=== PATIENT | female | born 1960 | race Caucasian/White ===

== ENCOUNTER 2016-07-12 13:11 | Emergency (ER) | payer MEDICAID ==
[2016-07-12 13:21] VITALS: BP 122/73
--- NOTE | 2016-07-12 13:22 | ER Document Report ---
ED Medical Screen (RME) - General Stated Complaint: FALL SIDE PAIN Notes: patient is a 55 year old female who feel in a hole 4 ft deep last night c/o right side rib pain. Denies SOB, dyspnea. I have greeted and performed a rapid initial assessment of this patient. A comprehensive ED assessment and evaluation of the patient, analysis of test results and completion of the medical decision making process will be conducted by additional ED providers. TRAVEL OUTSIDE OF THE [place] IN LAST 30 DAYS: No - Related Data Allergies/Adverse Reactions: codeine [Codeine] Allergy (Severe, Verified 05/27/14 14:02) hives, itch, SOB Iodinated Contrast Media - Oral and Allergy (Severe, Verified 05/27/14 14:04) Hives morphine [Morphine] Adverse Reaction (Intermediate, Verified 05/20/14 06:49) N&V Past Medical History - Past Medical History Cardiac Medical History: Reports: Hx Hypercholesterolemia - meds x 3 years, Hx Hypertension - meds x 15 years Denies: Hx Atrial Fibrillation, Hx Congestive Heart Failure, Hx Coronary Artery Disease, Hx Heart Attack, Hx Peripheral Vascular Disease, Hx Pulmonary Embolism, Hx Heart Murmur Pulmonary Medical History: Reports: Hx Pneumonia - hospitalized 2008 Denies: Hx Asthma, Hx Bronchitis, Hx COPD, Hx Respiratory Failure, Hx Sleep Apnea, Hx Tuberculosis Neurological Medical History: Reports: Hx Cerebrovascular Accident - 2010, RT sided weakness, occ "stuttering", Hx Migraine. Denies: Hx Seizures Renal/ Medical History: Reports: Hx Ovarian Cysts. Denies: Hx End Stage Renal Disease, Hx Kidney Stones, Hx Peritoneal Dialysis, Hx Pelvic Inflammatory Disease Malignancy Medical History: Denies: Hx Breast Cancer, Hx Cervical Cancer, Hx Leukemia, Hx Lung Cancer, Hx Ovarian Cancer GI Medical History: Reports: Hx Gastroesophageal Reflux Disease - meds x 14 years, Hx Hepatitis - HEP C, Hx Hiatal Hernia - Dx'ed with EGD 2013, Dr Ross. Denies: Hx Crohn's Disease, Hx Irritable Bowel, Hx Liver Failure, Hx Ulcer Musculoskeltal Medical History: Reports Hx Arthritis, Denies Hx Fibromyalgia, Denies Hx Multiple Sclerosis, Denies Hx Muscular Dystrophy, Reports Hx Muscle Weakness - rt Psychiatric Medical History: Reports: Hx Depression - meds x 3 years Denies: Hx Bipolar Disorder, Hx Dementia, Hx Post Traumatic Stress Disorder, Hx Schizophrenia Traumatic Medical History: Reports: Hx Fractures - clavicle LT as a child, "elbow" LT approx 6 yrs ago, no surgery Infectious Medical History: Reports: Hx Hepatitis - HEP C. Denies: Hx HIV Past Surgical History: Reports: Hx Appendectomy - as child, Hx Cholecystectomy - lap 2013, Hx Hysterectomy - TERRY BSO . Denies: Hx Bowel Surgery, Hx Section, Hx Colostomy, Hx Coronary Artery Bypass Graft, Hx Gastric Bypass Surgery, Hx Herniorrhaphy, Hx Mastectomy, Hx Pacemaker, Hx Tonsillectomy , Hx Tubal Ligation - Immunizations Hx Diphtheria, Pertussis, Tetanus Vaccination: Yes Physical Exam - Vital signs Vitals: Temp Pulse Resp BP Pulse Ox 97.8 F 84 21 H 122/73 97 07/12/16 13:15 07/12/16 13:15 07/12/16 13:15 07/12/16 13:15 07/12/16 13:15 Course - Vital Signs Vital signs: Temp Pulse Resp BP Pulse Ox 97.8 F 84 21 H 122/73 97 07/12/16 13:15 07/12/16 13:15 07/12/16 13:15 07/12/16 13:15 07/12/16 13:15
--- NOTE | 2016-07-12 13:59 | ER Document Report ---
ED Fall - General Chief Complaint: Rib Pain Stated Complaint: FALL SIDE PAIN Time seen by provider: 13:59 Mode of Arrival: Ambulatory Notes: 55-year-old female presents to ED for pain in her right lateral ribs after falling in a 4 foot hole last night while walking along the side of the road. She complains of pain with any inspiration. Speaking in full sentences no respiratory distress noted. No bruising noted. TRAVEL OUTSIDE OF THE [place] IN LAST 30 DAYS: No - HPI Occurred: Yesterday Where: Outdoors Context: Tripped - Fell into a 4 foot hole on the side of the road Associated symptoms: Other - Pain with inspiration Location of injury/pain: Other Quality of pain: Sharp Severity: Moderate Pain Level: 4 - Related data Allergies/Adverse Reactions: Iodinated Contrast Media - Oral and Allergy (Severe, Verified 07/12/16 13:23) Hives Past Medical History - General Information source: Patient - Social History Smoking Status: Never Smoker Chew tobacco use (# tins/day): No Frequency of alcohol use: None Drug Abuse: None Lives with: Family Family History: Hypertension Patient has suicidal ideation: No Patient has homicidal ideation: No - Past Medical History Cardiac Medical History: Reports: Hx Hypercholesterolemia - meds x 3 years, Hx Hypertension - meds x 15 years Pulmonary Medical History: Reports: Hx Pneumonia - hospitalized 2008 EENT Medical History: Reports: None Neurological Medical History: Reports: Hx Cerebrovascular Accident - 2010, RT sided weakness, occ "stuttering" 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 Denies: Hx Seizures Endocrine Medical History: Reports: None Renal/ Medical History: Reports: Hx Ovarian Cysts Malignancy Medical History: Reports: None GI Medical History: Reports: Hx Gastroesophageal Reflux Disease - meds x 14 years, Hx Hiatal Hernia - Dx'ed with EGD 2013, Dr Ross Musculoskeltal Medical History: Reports Hx Arthritis, Reports Hx Muscle Weakness - rt Skin Medical History: Reports None Psychiatric Medical History: Reports: Hx Depression - meds x 3 years Traumatic Medical History: Reports: Hx Fractures - clavicle LT as a child, "elbow" LT approx 6 yrs ago, no surgery Past Surgical History: Reports: Hx Appendectomy - as child, Hx Cholecystectomy - lap 2013, Hx Hysterectomy, Hx Orthopedic Surgery - Right total knee replacement - Immunizations Immunizations up to date: Yes Hx Diphtheria, Pertussis, Tetanus Vaccination: Yes Review of Systems - Review of Systems Constitutional: No symptoms reported EENT: No symptoms reported Cardiovascular: No symptoms reported Respiratory: Hurts to breathe, Other - Right lateral rib pain Gastrointestinal: No symptoms reported Genitourinary: No symptoms reported Female Genitourinary: No symptoms reported Musculoskeletal: Other - Right lateral rib pain Skin: No symptoms reported Hematologic/Lymphatic: No symptoms reported Neurological/Psychological: No symptoms reported -: Yes All other systems reviewed and negative Physical Exam - Vital signs Vitals: Temp Pulse Resp BP Pulse Ox 97.8 F 84 21 H 122/73 97 07/12/16 13:15 07/12/16 13:15 07/12/16 13:15 07/12/16 13:15 07/12/16 13:15 Interpretation: Normal - General General appearance: Appears well, Alert - HEENT Head: Normocephalic, Atraumatic Eyes: Normal Pupils: PERRL - Respiratory Respiratory status: No respiratory distress Chest status: Tender, Pain on movement, Pain with cough, Pain with deep breathing, Splinting Breath sounds: Normal Chest palpation: Normal - Cardiovascular Rhythm: Regular Heart sounds: Normal auscultation Murmur: No - Abdominal Inspection: Normal Distension: No distension Bowel sounds: Normal Tenderness: Nontender Organomegaly: No organomegaly - Back Back: Normal, Nontender - Extremities General upper extremity: Normal inspection, Nontender, Normal color, Normal ROM , Normal temperature General lower extremity: Normal inspection, Nontender, Normal color, Normal ROM , Normal temperature, Normal weight bearing. No: Sofie's sign - Neurological Neuro grossly intact: Yes Cognition: Normal Orientation: AAOx4 Joey Coma Scale Eye Opening: Spontaneous [place] Coma Scale Verbal: Oriented Joey Coma Scale Motor: Obeys Commands [place] Coma Scale Total: 15 Speech: Normal Motor strength normal: LUE, RUE, LLE, RLE Sensory: Normal - Psychological Associated symptoms: Normal affect, Normal mood - Skin Skin Temperature: Warm Skin Moisture: Dry Skin Color: Normal Course - Re-evaluation Re-evalutation: 07/12/16 15:02 Discussed x-ray with patient. Patient instructed on use of incentive spirometry to reduce risk of pneumonia for her rib contusion. We'll discharge patient home with a small prescription of Formoso for pain and have follow-up with her primary doctor. - Vital Signs Vital signs: Temp Pulse Resp BP Pulse Ox 97.8 F 84 21 H 122/73 97 07/12/16 13:15 07/12/16 13:15 07/12/16 13:15 07/12/16 13:15 07/12/16 13:15 - Diagnostic Test Radiology reviewed: Image reviewed, Reports reviewed Discharge - Discharge Clinical Impression: Contusion of rib on right side Qualifiers: Encounter type: initial encounter Qualified Code(s): S20.211A - Contusion of right front wall of thorax, initial encounter Condition: Stable Disposition: HOME, SELF-CARE Additional Instructions: Rib Contusion You have been diagnosed as having bruised ribs. It will usually take a few weeks for these injured ribs to heal. You should cough or take a deep breath at least every hour or two to prevent lung complications. You should not engage in any strenuous physical activity until released by your physician. The usual rule is "if it hurts, don' t do it." Return if you develop any of the following: (1) Fever or chills. (2) Persistent cough, coughing up blood, or shortness of breath. (3) Increasing pain. (4) Weakness, lightheadedness, or fainting. Oral Narcotic Medication You have been given a prescription for pain control. This medication is a narcotic. It's best taken with food, as nausea can result if taken on an empty stomach. Don't operate machinery or drive within six hours of taking this medication. Do not combine this medicine with alcohol, or with any medication which can cause sedation (such as cold tablets or sleeping pills) unless you get permission from the physician. Narcotics tend to cause constipation. If possible, drink plenty of fluids and eat a diet high in fiber and fruits. Ice Packs Apply ice packs frequently against the painful area. Many different schedules are recommended, such as "20 minutes on, 20 minutes off" or "one hour ice, two hours rest." If you need to work, you may need to go longer between ice treatments. You should plan to have the area ice packed AT LEAST one fourth of the time. The ice should be applied over the wrap, tape, or splint, or over a layer of cloth -- not directly against the skin. Some ice bags have a built-in cloth and can be put directly on the skin. Please your usual incentive spirometry 10 times every hour while awake to reduce the risk of pneumonia. Please follow-up with your primary doctor within the next 24-48 hours. FOLLOW-UP CARE: If you have been referred to a physician for follow-up care, call the physician s office for an appointment as you were instructed or within the next two days. If you experience worsening or a significant change in your symptoms, notify the physician immediately or return to the Emergency Department at any time for re-evaluation. Prescriptions: Hydrocodone/Acetaminophen [Formoso 5-325 mg Tablet] 1 tab PO Q6HP PRN #14 tablet PRN Reason: Referrals: MARLENY SHRESTHA PA-C [Primary Care Provider] - Follow up as needed
== END 2016-07-12 15:36 | disposition home or self-care (01) ==
LOC: ER 13:11
DX: S20.211A Contusion of right front wall of thorax, initial encounter (principal); R07.81 Pleurodynia; W17.2XXA Fall into hole, initial encounter; Y93.01 Activity, walking, marching and hiking; Y92.488 Other paved roadways as the place of occurrence of the external cause; I10 Essential (primary) hypertension; Z91.041 Radiographic dye allergy status; Z87.01 Personal history of pneumonia (recurrent)
CPT/HCPCS: 99283

== ENCOUNTER → 2020-03-03 | Outpatient (CLI) | payer MEDICAID ==
--- NOTE | 2020-03-03 11:03 | RADIOLOGY REPORT (SQ) ---
EXAM DESCRIPTION: CERV SP 4 OR 5 VIEWS IMAGES COMPLETED DATE/TIME: 03/03/2020 9:31 am REASON FOR STUDY: CERVICALGIA M54.5 LOW BACK PAIN M25.511 PAIN IN RIGHT SHOULDER M54.2 CERVICALGI A COMPARISON: None. NUMBER OF VIEWS: Five views including obliques. TECHNIQUE: AP, lateral, obliques and odontoid radiographic images acquired of the cervical spine. LIMITATIONS: None. FINDINGS: MINERALIZATION: Normal. ALIGNMENT: Grade 1 anterolisthesis of C3 on C4 and C4 on C5. VERTEBRAE: Maintained height. No fracture or worrisome bone lesion. DISCS: Multilevel disc space narrowing. Changes are most prominent at C5-C6 and C6-C7. POSTERIOR ELEMENTS: Pedicles and facets are intact. No posterior arch defects. Facet arthropathy is present. FORAMINA: Foraminal narrowing on the right at C5-C6. Foraminal narrowing on the left at C5-C6 and C6 -C7. HARDWARE: None in the spine. PARASPINAL SOFT TISSUES: Normal. OTHER: No other significant finding. IMPRESSION: SPONDYLOSIS WITHOUT BONE LESION OR FRACTURE. TECHNICAL DOCUMENTATION: JOB ID: [id number] 2010 [employer]- All Rights Reserved Reading location - IP/workstation name: [email or web address]
--- NOTE | 2020-03-03 11:04 | RADIOLOGY REPORT (SQ) ---
EXAM DESCRIPTION: L SPINE WHOLE IMAGES COMPLETED DATE/TIME: 03/03/2020 9:31 am REASON FOR STUDY: LOW BACK PAIN M54.5 LOW BACK PAIN M25.511 PAIN IN RIGHT SHOULDER M54.2 CERVICAL MANDY COMPARISON: None. NUMBER OF VIEWS: Five views including obliques. TECHNIQUE: AP, lateral, oblique, and sacral radiographic images acquired of the lumbar spine. LIMITATIONS: None. FINDINGS: MINERALIZATION: Normal. SEGMENTATION: Normal. No transitional anatomy. ALIGNMENT: There is slight anterolisthesis of L4 on L5. VERTEBRAE: Maintained height. No fracture or worrisome bone lesion. DISCS: Mild multilevel disc space narrowing with small anterior osteophytes. There prominent lateral osteophytes as well most marked in the upper lumbar spine. POSTERIOR ELEMENTS: Pedicles and facets are intact. No pars defect or posterior arch defects. Facet arthropathy is present. HARDWARE: None in the spine. PARASPINAL SOFT TISSUES: Normal. PELVIS: Intact as visualized. No fractures or worrisome bone lesions. SI joints intact. OTHER: No other significant finding. IMPRESSION: SPONDYLOSIS WITHOUT BONE LESION OR FRACTURE. TECHNICAL DOCUMENTATION: JOB ID: [id number] 2010 [employer]- All Rights Reserved Reading location - IP/workstation name: [email or web address]
--- NOTE | 2020-03-03 11:05 | RADIOLOGY REPORT (SQ) ---
EXAM DESCRIPTION: SHOULDER RIGHT 2 OR MORE VIEWS IMAGES COMPLETED DATE/TIME: 03/03/2020 9:31 am REASON FOR STUDY: PAIN IN RIGHT SHOULDER M54.5 LOW BACK PAIN M25.511 PAIN IN RIGHT SHOULDER M54.2 CERVICALGIA COMPARISON: None. NUMBER OF VIEWS: Three views. TECHNIQUE: Internal rotation, external rotation, and Y view images acquired of the right shoulder. LIMITATIONS: None. FINDINGS: MINERALIZATION: Normal. BONES: No acute fracture. No worrisome bone lesions. No significant osteophytes. GLENOHUMERAL JOINT: No significant findings. ACROMIOCLAVICULAR JOINT: No large osteophytes. SOFT TISSUES: No calcifications. VISUALIZED RIBS, SPINE, AND LUNG: No other significant finding. OTHER: No other significant finding. IMPRESSION: NEGATIVE STUDY OF THE RIGHT SHOULDER. NO EXPLANATION FOR PAIN. TECHNICAL DOCUMENTATION: JOB ID: [id number] 2010 [employer]- All Rights Reserved Reading location - IP/workstation name: [email or web address]
== END ==
LOC: RAD 08:50
PROVIDERS: ATTEND Nurse Practitioner Family
DX: M47.812 Spondylosis without myelopathy or radiculopathy, cervical region (principal); M54.2 Cervicalgia; M47.816 Spondylosis without myelopathy or radiculopathy, lumbar region; M54.5 Low back pain; M25.511 Pain in right shoulder
CPT/HCPCS: 72050; 72110